=== PATIENT | male | born 1985 | race Caucasian/White ===

== ENCOUNTER 2021-04-28 18:41 | Emergency (ER) | payer BC ==
[2021-04-29 09:18] LABS: SARS-CoV-2 PCR by NAA DETECTED (NotDetected)
== END 2021-04-28 20:24 | disposition home or self-care (01) ==
LOC: ERS 18:41
DX: U07.1 COVID-19 (principal); I10 Essential (primary) hypertension; E03.9 Hypothyroidism, unspecified; F17.210 Nicotine dependence, cigarettes, uncomplicated; E78.00 Pure hypercholesterolemia, unspecified; K21.9 Gastro-esophageal reflux disease without esophagitis
CPT/HCPCS: 71045; U0003; U0005